=== PATIENT | female | born 1950 | race Caucasian/White ===

== ENCOUNTER → 2016-12-21 | Outpatient (CLI) | payer MEDICARE, BC ==
[~2016-12-21] MED LIST: FOSINOPRIL SODI10 MG PO; MEDROL4 MG/DOSE- PO; PLAVIX PO; SIMVASTATIN40 MG PO; TOPROL XL PO; ZYRTEC10 M2 PO
--- NOTE | ~2016-12-21 | MY11 ---
[facility] A Service of [facility] RADIOLOGY TEXT RESULTS PATIENT: KAREN VINCENT LOCATION: [facility] : 46 UNIT #: [id number] AGE: [address]: Braeden Mackey MD SEX: F ORDER DR: [id number] [facility]. [place], [place] [address] [id number] O MR#: [id number] Acc #: [id number] NAME: KAREN VINCENT : 1950 SEX: F STUDY DATE/TIME: 12/21/2016 9:52 UNIT: [facility] ROOM: STUDY DESCRIPTION: MY Mammogram Screening Dig Dom Attending Physician: Braeden Mackey M.D. Referring Physician: Braeden Mackey M.D. Ordering Physician: Braeden Mackey M.D. Primary Care Physician: Braeden Mackey M.D. MEDICAL IMAGING REPORT This report is preliminary unless electronic signature is present EXAM Bilateral digital screening mammogram with CAD 12/21/2016 INDICATION 66-year-old female for routine screening. No reported problems. No personal or family history of breast cancer. No surgeries. TECHNIQUE CC and MLO views of the breast were obtained and reviewed with an FDA-approved CAD device. COMPARISONS 10/31/2015, 09/19/2012, 09/03/2011 FINDINGS Breast parenchyma is composed of scattered fibroglandular densities. The pattern is unchanged. There is no new dominant nodule, mass, or suspicious cluster of microcalcifications. Axillary nodes bilaterally unchanged. IMPRESSION Negative screening mammogram. 1-year follow-up recommended. Patient's over the age of 40 are entered into a reminder system with target due date for the next mammogram. BIRADS: 1 Negative Dictated by... Kevin Keyes M.D. THIS IS AN ELECTRONICALLY VERIFIED REPORT [facility] A Service of [facility] RADIOLOGY TEXT RESULTS PATIENT: KAREN VINCENT LOCATION: [facility] : 46 UNIT #: [id number] AGE: [address]: Braeden Mackey MD SEX: F ORDER DR: Kevin Keyes M.D. at 12/21/2016 3:39 PM DAVIN/merlin TD: 12/21/2016 13:33 JOB #: [id number] MEDICAL IMAGING REPORT COPY
== END | disposition home or self-care (01) ==
LOC: CWCC 09:24
DX: Z12.31 Encounter for screening mammogram for malignant neoplasm of breast (principal)
CPT/HCPCS: G0202